=== PATIENT | female | born 1945 | race Caucasian/White ===

== ENCOUNTER 2018-10-06 10:30 | Outpatient (CLI) | payer MEDICARE | END 2018-10-06 10:31 | disposition critical access hospital (66) | LOC: EMS 10:30 | PROVIDERS: ATTEND Surgery | DX: R56.9 Unspecified convulsions (principal); R53.83 Other fatigue; R32 Unspecified urinary incontinence; R63.0 Anorexia; R41.82 Altered mental status, unspecified | CPT/HCPCS: A0425; A0427 ==

== ENCOUNTER 2018-10-06 11:04 | Emergency (ER) | payer MEDICARE ==
[2018-10-06 11:49] LABS: BASOPHILS % (AUTO) 0.1 %; LYMPHOCYTES # (AUTO) 0.7 10^3/uL (1.5-3.5); LYMPHOCYTES % (AUTO) 5.8 %; MEAN CORPUSCULAR HEMOGLOBIN 30.5 pg (27.0-31.0); MEAN CORPUSCULAR HGB CONC 33.4 g/dL (32.0-36.0); MEAN CORPUSCULAR VOLUME 91.3 fL (81.0-99.0); MEAN PLATELET VOLUME 7.4 fL (7.9-10.8); MONOCYTES # (AUTO) 0.4 10^3/uL (0.0-1.0); MONOCYTES % (AUTO) 3.5 %; NEUTROPHILS # (AUTO) 11.2 10^3/uL (1.5-6.6); NEUTROPHILS % (AUTO) 90.6 %; PLT - PLATELET COUNT 331 10^3/uL (130-450); RED BLOOD COUNT 4.25 10^6/uL (4.20-5.40); RED CELL DISTRIBUTION WIDTH 13.5 % (12.0-15.0); WHITE BLOOD COUNT 12.4 x10^3/uL (4.8-10.8)
[2018-10-06 12:11] LABS: ACETAMINOPHEN 11 ug/mL (10-30); ALBUMIN 4.5 g/dL (3.2-5.5); ALBUMIN/GLOBULIN RATIO 1.4 (1.0-2.2); ALKALINE PHOSPHATASE 93 IU/L (42-121); ALT ALANINE AMINOTRANSFERASE 16 IU/L (10-60); AST ASPARTATE AMINOTRANSFERASE 30 IU/L (10-42); BILIRUBIN,TOTAL 0.4 mg/dL (0.2-1.0); BUN - BLOOD UREA NITROGEN 12 mg/dL (6-20); CALCIUM 9.9 mg/dL (8.5-10.3); CARBON DIOXIDE - CO2 30 mmol/L (21-32); CHLORIDE 97 mmol/L (101-111); CREATININE 0.9 mg/dL (0.4-1.0); GFR - MDRD 62 (>89); GLUCOSE 144 mg/dL (70-100); LIPASE 19 U/L (22-51); SALICYLATE < 6.0 mg/dL; SODIUM 139 mmol/L (135-145); TOTAL PROTEIN 7.8 g/dL (6.7-8.2)
--- NOTE | 2018-10-06 12:45 | ED Physician Documentation ---
PD HPI SEIZURE - Stated complaint Stated Complaint: SZ - Chief complaint Chief Complaint: Neuro - History obtained from History obtained from: Patient, EMS - History of Present Illness Timing - onset: Today (This is a 73-year-old woman with history of seizure disorder maintained on clonazepam. Also chronic pain on morphine and hydrocodone. History from the patient is limited, she is very somnolent. Reportedly had a seizure today. She denies pain other than her usual pains, and denies taking excessive medication.) Review of Systems Unable to obtain: Confused PD PAST MEDICAL HISTORY - Past Medical History Past Medical History: Yes Neuro: Head injury, Seizure disorder Musculoskeletal: Chronic back pain - Past Surgical History Past Surgical History: No - Present Medications Home Medications: Ambulatory Orders Medication Instructions Recorded Confirmed Cyclobenzaprine [Flexeril] 0 mg 10/06/18 Hydrocodone/Acetaminophen [Vicodin 0 mg 10/06/18 5-300 mg Tablet] Nitrofurantoin Monohyd/M-Cryst 100 mg PO BID #10 capsule 10/06/18 [Macrobid 100 mg Capsule] RX: Clonazepam 0 mg 10/06/18 clonazePAM [KlonoPIN] 0 mg 10/06/18 - Allergies Allergies/Adverse Reactions: Allergies Allergy/AdvReac Type Severity Reaction Status Date / Time meperidine [From Demerol] Allergy Nausea Verified 10/06/18 11:14 - Social History Does the pt smoke?: No Smoking Status: Never smoker Does the pt drink ETOH?: No Does the pt have substance abuse?: No PD ED PE NORMAL - Vitals Vital signs reviewed: Yes - General General: Other (She is very somnolent, she will wake up and follow simple commands and answer simple questions but falls back asleep before the completion of a sentence.) - HEENT HEENT: Other (Bilaterally midpoint minimally reactive pupils, she has some swelling over the left face and her glasses are been suggesting that she hit on the left side of her head.) - Neck Neck: Supple, no meningeal sign, No bony TTP - Cardiac Cardiac: RRR, No murmur - Respiratory Respiratory: No respiratory distress, Clear bilaterally - Abdomen Abdomen: Normal bowel sounds, Soft, Non tender - Female Female : Other (She is incontinent of urine or at least smells heavily of urine) - Derm Derm: Normal color, Other (Cool periphery with normal pulses) - Extremities Extremities: No deformity, No tenderness to palpate, Normal ROM s pain - Neuro Neuro: No motor deficit, No sensory deficit Eye Opening: To Voice Motor: Obeys Commands Verbal: Confused GCS Score: 13 Results - Vitals Vitals: Vital Signs - 24 hr 10/06/18 10/06/18 10/06/18 11:07 11:52 13:15 Temperature Heart Rate 82 68 74 Respiratory 18 16 12 Rate Blood Pressure 133/73 H 121/66 131/67 H O2 Saturation 93 94 99 10/06/18 10/06/18 10/06/18 13:30 14:00 14:30 Temperature Heart Rate 71 72 74 Respiratory 12 12 12 Rate Blood Pressure 124/76 125/61 128/72 O2 Saturation 99 98 99 10/06/18 10/06/18 10/06/18 15:00 16:00 17:00 Temperature Heart Rate 74 74 75 Respiratory 14 14 14 Rate Blood Pressure 117/72 112/67 124/72 O2 Saturation 98 96 95 10/06/18 10/06/18 10/06/18 17:56 18:30 19:39 Temperature 37.2 C 36.8 C Heart Rate 72 70 66 Respiratory 12 14 18 Rate Blood Pressure 108/65 126/63 125/76 O2 Saturation 97 93 97 10/06/18 10/06/18 10/06/18 20:59 22:00 22:35 Temperature 36.6 C Heart Rate 69 71 Respiratory 12 17 Rate Blood Pressure 125/64 121/60 107/53 L O2 Saturation 100 100 10/06/18 10/07/18 22:44 00:26 Temperature 36.8 C 36.6 C Heart Rate 72 73 Respiratory 10 L 10 L Rate Blood Pressure 107/53 L 97/86 H O2 Saturation 100 94 Oxygen O2 Source Room air - Labs Labs: Laboratory Tests 10/06/18 10/06/18 10/06/18 11:35 11:35 11:35 WBC 12.4 H RBC 4.25 Hgb 13.0 Hct 38.8 MCV 91.3 MCH 30.5 MCHC 33.4 RDW 13.5 Plt Count 331 MPV 7.4 L Neut # (Auto) 11.2 H Lymph # (Auto) 0.7 L [place] # (Auto) 0.4 Eos # (Auto) 0.0 Baso # (Auto) 0.0 Absolute Nucleated RBC 0.00 Nucleated RBC % 0.0 Sodium 139 Potassium 3.5 Chloride 97 L Carbon Dioxide 30 Anion Gap 12.0 BUN 12 Creatinine 0.9 Estimated GFR (MDRD) 62 L Glucose 144 H Calcium 9.9 Total Bilirubin 0.4 AST 30 ALT 16 Alkaline Phosphatase 93 Total Protein 7.8 Albumin 4.5 Globulin 3.3 Albumin/Globulin Ratio 1.4 Lipase 19 L TSH 0.92 Urine Color Urine Clarity Urine pH Ur Specific [place] Urine Protein Urine Glucose (UA) Urine Ketones Urine Occult Blood Urine Nitrite Urine Bilirubin Urine Urobilinogen Ur Leukocyte Esterase Urine RBC Urine WBC Urine WBC Clumps Ur Squamous Epith Cells Urine Bacteria Ur Microscopic Review Urine Culture Comments Salicylates < 6.0 Urine Opiates Screen Ur Oxycodone Screen Urine Methadone Screen Ur Propoxyphene Screen Acetaminophen 11 Ur Barbiturates Screen Ur Tricyclics Screen Ur Phencyclidine Scrn Ur Amphetamine Screen U Methamphetamines Scrn U Benzodiazepines Scrn Urine Cocaine Screen U Cannabinoids Screen Ethyl Alcohol < 5.0 10/06/18 14:20 WBC RBC Hgb Hct MCV MCH MCHC RDW Plt Count MPV Neut # (Auto) Lymph # (Auto) [place] # (Auto) Eos # (Auto) Baso # (Auto) Absolute Nucleated RBC Nucleated RBC % Sodium Potassium Chloride Carbon Dioxide Anion Gap BUN Creatinine Estimated GFR (MDRD) Glucose Calcium Total Bilirubin AST ALT Alkaline Phosphatase Total Protein Albumin Globulin Albumin/Globulin Ratio Lipase TSH Urine Color YELLOW Urine Clarity CLEAR Urine pH 6.0 Ur Specific [place] 1.020 Urine Protein NEGATIVE Urine Glucose (UA) NEGATIVE Urine Ketones NEGATIVE Urine Occult Blood NEGATIVE Urine Nitrite POSITIVE H Urine Bilirubin NEGATIVE Urine Urobilinogen 0.2 (NORMAL) Ur Leukocyte Esterase TRACE H Urine RBC 0-5 Urine WBC >25 H Urine WBC Clumps PRESENT Ur Squamous Epith Cells RARE Squamous Urine Bacteria Many H Ur Microscopic Review INDICATED Urine Culture Comments INDICATED Salicylates Urine Opiates Screen POSITIVE H Ur Oxycodone Screen NEGATIVE Urine Methadone Screen NEGATIVE Ur Propoxyphene Screen NEGATIVE Acetaminophen Ur Barbiturates Screen POSITIVE H Ur Tricyclics Screen NEGATIVE Ur Phencyclidine Scrn NEGATIVE Ur Amphetamine Screen NEGATIVE U Methamphetamines Scrn NEGATIVE U Benzodiazepines Scrn NEGATIVE Urine Cocaine Screen NEGATIVE U Cannabinoids Screen NEGATIVE Ethyl Alcohol PD MEDICAL DECISION MAKING - ED course ED course: 73-year-old woman presents by ambulance with altered mental status and potential seizure today. She slowly improved with regards to mental status, and although denied it on arrival later remembers taking her medications inappropriately today. She keeps all of her medications mixed up in different bottles. It was advised that she needs to keep better track of her medications and she understands. She required a significant period of ED observation for metabolism of the meds and return of normal mental status and ability to ambulate safely, but did return to normal mental status and ambulated prior to discharge. Departure - Departure Disposition: 01 Home, Self Care Clinical Impression: Accidental drug overdose Qualifiers: Encounter type: initial encounter Qualified Code(s): T50.901A - Poisoning by unspecified drugs, medicaments and biological substances, accidental (unintentional), initial encounter Altered mental status Qualifiers: Altered mental status type: delirium Qualified Code(s): R41.0 - Disorientation, unspecified Urinary tract infection Qualifiers: Urinary tract infection type: site unspecified Hematuria presence: without hematuria Qualified Code(s): N39.0 - Urinary tract infection, site not specified Condition: Good Record reviewed to determine appropriate education?: Yes Instructions: ED UTI Cystitis Female Prescriptions: Nitrofurantoin Monohyd/M-Cryst [Macrobid 100 mg Capsule] 100 mg PO BID #10 capsule Comments: It is imperative to only take your medications as prescribed and not in excessive doses. Discharge Date/Time: 10/07/18 01:09
--- NOTE | 2018-10-06 13:24 | CT Report ---
Reason: altered Procedure Date: 10/06/2018 Accession Number: [id number] / [id number] Procedure: CT - HEAD WO CPT Code: FULL RESULT: EXAM: CT HEAD EXAM DATE: 10/06/2018 01:04 PM. CLINICAL HISTORY: Altered. COMPARISON: HEAD W/O 10/06/2018 12:59 PM. TECHNIQUE: Multiaxial CT images were obtained from the foramen magnum to the vertex. Reformats: Sagittal and coronal. IV contrast: None. In accordance with CT protocol optimization, one or more of the following dose reduction techniques were utilized for this exam: automated exposure control, adjustment of mA and/or KV based on patient size, or use of iterative reconstructive technique. FINDINGS: Parenchyma: No intraparenchymal hemorrhage. No evidence of mass, midline shift, or CT findings of acute infarction. James-white differentiation is distinct. There is low density to the bifrontal periventricular white matter, left greater than right, consistent with microvascular ischemic change. Extraaxial Spaces: Normal for age. No subdural or epidural collections identified. Ventricles: Normal in size and position. Sinuses and Orbits: Imaged paranasal sinuses, orbits, and mastoids show no significant abnormality. Bones: No evidence of fracture or calvarial defect. Other: None. IMPRESSION: 1. No evidence of acute cortical infarction, mass effect, or intracranial hemorrhage. 2. Low density to the bifrontal periventricular white matter, left greater than right, most likely chronic microvascular ischemic change. [facility]
[2018-10-06 14:26] LABS: MUDS CUTOFF CONCENTRATIONS CUTOFF CONC BELOW:
[2018-10-06 14:27] LABS: BILIRUBIN,URINE NEGATIVE (NEGATIVE); GLUCOSE, URINE (UA) NEGATIVE (NEGATIVE); KETONES,URINE (UA) NEGATIVE (NEGATIVE); LEUKOCYTE ESTERASE, URINE TRACE (NEGATIVE); NITRITE,URINE POSITIVE (NEGATIVE); OCCULT BLOOD,URINE NEGATIVE (NEGATIVE); PROTEIN,URINE NEGATIVE (NEGATIVE); UROBILINOGEN,URINE 0.2 (NORMAL) E.U./dL (NORMAL)
[2018-10-06 14:29] LABS: CLARITY,URINE CLEAR (CLEAR)
[2018-10-06 14:36] LABS: BACTERIA,URINE Many /HPF (None Seen); RBC,URINE 0-5 /HPF (0-5); SQUAMOUS EPITHELIAL CELL,UR RARE Squamous (<= Few); WBC CLUMPS,URINE PRESENT
[2018-10-06 14:38] LABS: AMPHETAMINE SCREEN,URINE NEGATIVE (NEGATIVE); BENZODIAZEPINES SCREEN, URINE NEGATIVE (NEGATIVE); COCAINE SCREEN URINE NEGATIVE (NEGATIVE); METHADONE SCREEN, URINE NEGATIVE (NEGATIVE); METHAMPHETAMINES SCREEN, URINE NEGATIVE (NEGATIVE); OPIATE SCREEN, URINE POSITIVE (NEGATIVE); OXYCODONE SCREEN, URINE NEGATIVE (NEGATIVE); PROPOXYPHENE SCREEN, URINE NEGATIVE (NEGATIVE); TRICYCLIC ANTIDEPRESSANT,URINE NEGATIVE (NEGATIVE)
[2018-10-06] MEDS ORDERED: cefTRIAXone 1 GM in SODIUM CHLORIDE 0.9% MINIBAG 100 ML IV STA (14:41)
[2018-10-07 00:27] VITALS: BP 97/86
== END 2018-10-07 01:09 | disposition home or self-care (01) ==
LOC: EDUNIT# → ED 11:04
DX: T50.901A Poisoning by unspecified drugs, medicaments and biological substances, accidental (unintentional), initial encounter (principal); R40.0 Somnolence; R41.0 Disorientation, unspecified; N39.0 Urinary tract infection, site not specified; G40.909 Epilepsy, unspecified, not intractable, without status epilepticus; M54.9 Dorsalgia, unspecified; G89.29 Other chronic pain
CPT/HCPCS: 36415; 70450; 80053; 80306; 80307; 80320; 80329; 81001; 81003; 83690; 84443; 85025; 87086; 87181; 96365; 99284; 99285